=== PATIENT | male | born 1950 ===

== ENCOUNTER 2025-06-19 05:21 | Emergency (ER) | payer MEDICARE, BC ==
[2025-06-19] MEDS ORDERED: Naloxone 0.4 MG/ML SDV IVPUSH PRN (06:19)
[2025-06-19] MEDS: Ketorolac 60 MG/2 ML SDV IM ONE (06:25)
== END 2025-06-19 08:11 | disposition home or self-care (01) ==
LOC: JD.ED 05:21
DX: G57.11 Meralgia paresthetica, right lower limb (principal); K21.9 Gastro-esophageal reflux disease without esophagitis; E11.9 Type 2 diabetes mellitus without complications; Z79.82 Long term (current) use of aspirin; Z86.16 Personal history of COVID-19
CPT/HCPCS: 93971; 96372; 99283; J1885; J2270; 99284